=== PATIENT | female | born 1980 | race Caucasian/White ===

== ENCOUNTER 2019-04-19 22:30 | Emergency (ER) | payer OTHER ==
[~2019-04-19] VITALS: Ht 167.6 cm; Wt 90.7 kg
[2019-04-20] MEDS ORDERED: KETO10TA2 PO (06:59)
[2019-04-20] MEDS ORDERED: ORPHENADRINE C100 MG PO (06:59)
[2019-04-20] MEDS ORDERED: CIPRO500 MG PO (06:59)
== END 2019-04-20 07:30 ==
LOC: ER 22:30
DX: K80.80 Other cholelithiasis without obstruction (principal); R10.31 Right lower quadrant pain; R11.0 Nausea

== ENCOUNTER 2019-07-09 04:31 | Emergency (ER) | payer OTHER ==
[~2019-07-09] VITALS: Ht 167.6 cm; Wt 90.7 kg
[~2019-07-09 04:31] MED LIST: CIPRO500 MG PO; KETO10TA2 PO; ORPHENADRINE C100 MG PO
[2019-07-09] MEDS ORDERED: COZAAR100 MG (04:44)
[2019-07-09] MEDS ORDERED: FLUCONAZOLE150 MG (04:45)
[2019-07-09] MEDS ORDERED: PROVERA2.5 MG (04:45)
[2019-07-09] MEDS ORDERED: FLAGYL500MG (04:46)
== END 2019-07-09 09:45 | disposition home or self-care (01) ==
LOC: ER 04:31 → EDBD 04:33 → ER 09:45
DX: K29.60 Other gastritis without bleeding (principal); T36.8X5A Adverse effect of other systemic antibiotics, initial encounter; Y92.89 Other specified places as the place of occurrence of the external cause